=== PATIENT | male | born 1990 | race African-American/Black ===

== ENCOUNTER 2024-08-02 08:48 | Emergency (ER) | payer SELFPAY ==
[2024-08-02 08:58] VITALS: RESP 18; TEMP 98; BMI 21.1
[2024-08-02] MEDS ORDERED: ACETAMINOPHEN 500 MG TABLET (FP) ONE (09:39)
[2024-08-02] MEDS ORDERED: FAMOTIDINE 10 MG TABLET ONE (09:39)
[2024-08-02] MEDS ORDERED: MAG HYDROX/AL HYDROX/SIMETH 30 ML UNIT-DOSE CUP ONE (09:39)
[2024-08-02] MEDS ORDERED: ONDANSETRON 4 MG TABLET PO ONE (09:39)
[2024-08-02] MEDS ORDERED: ONDANSETRON *ODT* 4 MG TABLET ONE (09:40)
[2024-08-02] MEDS: FAMOTIDINE 10 MG TABLET PO ONE (09:56)
[2024-08-02] MEDS: MAG HYDROX/AL HYDROX/SIMETH 30 ML UNIT-DOSE CUP PO ONE (09:56)
[2024-08-02] MEDS: ACETAMINOPHEN 500 MG TABLET (FP) PO ONE (09:56)
[2024-08-02] MEDS: ONDANSETRON *ODT* 4 MG TABLET SL ONE (09:57)
[2024-08-02 10:07] LABS: BASO % 0.5 % (0-2.0); EOS % 4.5 % (0-4.5); HEMATOCRIT 40.9 % (35.4-49); LYMPH % 59.1 % (8-40); MCH 23.7 pg (25.7-33.7); MCHC 31.7 g/dl (32.0-35.9); MEAN CELL VOLUME 74.7 fl (80-96); MEAN PLT VOLUME 8.2 fl (7.5-11.1); MONO % 7.9 % (3.8-10.2); PLATELET COUNT 241 10^3/uL (134-434); RBC 5.47 M/mm3 (4.00-5.60); RDW 14.8 % (11.9-15.9); WHITE BLOOD COUNT 4.3 K/mm3 (4.0-10.0)
[2024-08-02 10:28] LABS: POTASSIUM 4.1 mmol/L (3.5-5.1)
[2024-08-02 10:30] LABS: ALBUMIN 3.7 g/dl (3.4-5.0); CALCIUM 9.3 mg/dL (8.5-10.1)
[2024-08-02 10:31] LABS: BLOOD UREA NITROGEN 9.2 mg/dL (7-18)
[2024-08-02 10:35] LABS: BILIRUBIN,TOTAL 0.6 mg/dL (0.2-1); TOT PROT 6.8 g/dl (6.4-8.2)
[2024-08-02 11:33] VITALS: BP 116/70; PULSE 72
[2024-08-02 12:16] LABS: HIV INTERPRETATION NEGATIVE (NEGATIVE)
== END 2024-08-02 11:33 | disposition home or self-care (01) ==
LOC: JER 08:48
DX: R10.13 Epigastric pain (principal); R11.2 Nausea with vomiting, unspecified
CPT/HCPCS: 36415; 80053; 83690; 85025; 86803; 87389; 93005; 93010; 99284-25; Q0162